=== PATIENT | male | born 1995 | race Two or more races ===

== ENCOUNTER 2023-04-02 14:22 | Emergency (ER) | payer OTHER ==
[~2023-04-02] VITALS: Ht 182.9 cm; Wt 88.0 kg
[2023-04-02] MEDS ORDERED: MIDAZOLAM HCL 2 MG/2 ML VIAL IV ONE (14:45)
[2023-04-02] MEDS ORDERED: SODIUM CHLORIDE 0.9% 1,000 ML IV ONE (14:45)
[2023-04-02 16:01] LABS: BASOPHILS % 0.1 % (0.0-2.0); EOSINOPHILS % 0.2 % (0.0-5.0); HEMATOCRIT. 41.2 % (42.0-52.0); HEMOGLOBIN. 13.8 g/dL (14.0-18.0); LYMPHOCYTES % 12.2 % (20.0-50.0); MEAN CORPUSCULAR HEMOGLOBIN 28.8 pg (28.0-32.0); MEAN CORPUSCULAR HGB CONC 33.5 g/dL (31.0-37.0); MEAN PLATELET VOLUME 8.2 fl (7.4-10.4); NEUTROPHILS % 82.5 % (40.0-76.0); PLATELET 308 x1000/uL (130-400); RED BLOOD CELL COUNT 4.79 mill/uL (4.7-6.1); RED CELL DISTRIBUTION WIDTH 13.7 % (11.6-14.6); WHITE BLOOD COUNT 9.1 x1000/uL (4.5-11.0)
[2023-04-02 16:14] LABS: ALANINE AMINOTRANSFERASE 26 IU/L (10-49); ASPARTATE AMINOTRANSFERASE 27 IU/L (<34); BILIRUBIN TOTAL 0.4 mg/dL (0.1-1.0); CALCIUM 10.1 mg/dL (8.7-10.4); CARBON DIOXIDE 26 mEq/L (21-32); CHLORIDE 103 mEq/L (98-107); CREATININE 0.9 mg/dL (0.6-1.3); GLUCOSE 122 mg/dL (70-105); POTASSIUM 3.7 mEq/L (3.5-5.1); PROTEIN TOTAL 8.7 g/dL (6.0-8.3); SODIUM 138 mEq/L (136-145); UREA NITROGEN BLOOD 15 mg/dL (9-23)
[2023-04-02 16:23] LABS: ETHANOL BLOOD < 10 mg/dL (<10)
[2023-04-02 17:13] VITALS: O2SAT 99
[2023-04-02] MEDS ORDERED: MIDAZOLAM HCL 2 MG/2 ML VIAL IV NR (17:15)
[2023-04-02 18:23] VITALS: BP 127/71; PULSE 102; RESP 18; TEMP 98.4
== END 2023-04-02 18:24 ==
LOC: ER 14:22
DX: R56.9 Unspecified convulsions (principal)
CPT/HCPCS: 80053; 80320; 85025; 36415; 70450; 93005; 96361; 96374; 99285; J2250; J7030; Z7610; G0480